=== PATIENT | female | born 1965 | race Caucasian/White ===

== ENCOUNTER 2021-03-30 11:48 | Inpatient (IN) ==
[2021-03-30] MEDS ORDERED: ONDANSETRON INJ 2 MG/ML 2 ML VIAL IV STA (12:27)
[2021-03-30] MEDS ORDERED: MoRPHine SULFATE 4 MG/ML 1 ML CARP\\VIAL IV PRN (12:27)
[2021-03-30] MEDS ORDERED: KETOROLAC TROMETHAMINE 15 MG/ML VIAL IV STA (12:27)
[2021-03-30] MEDS ORDERED: SODIUM CHLORIDE 0.9% 1000ML 1,000 ML IV STA (12:27)
--- NOTE | 2021-03-30 12:31 | Emergency Department Note ---
Impression & Plan Epigastric abdominal pain, Precordial chest pain ED Provider Note NAME: KHARI MOLINA AGE: 56 SEX: F : 1965 ARRIVES VIA: Walk-In INFORMANT: [Patient] ED PROVIDER(S): [Keven Arvizu MD] CHIEF COMPLAINT: Chest pain HISTORY OF PRESENT ILLNESS: The patient is a 56-year-old female who has had 2 days of symptoms. She has lower chest pain/epigastric abdominal pain that radiates to the back. It is constant and a 10/10. The patient states that she was diagnosed with pancreatitis in the past and today's presentation feels similar. She was recently in the hospital for pancreatitis. The patient did try a liquid diet starting yesterday, it has not helped. There has been no shortness of breath, no cough or cold or fever. She has not had urinary complaints. 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 She still has her gallbladder. REVIEW OF SYSTEMS: See HPI for pertinent positives and negatives. A total of ten systems were reviewed and were otherwise negative. PMHx/PSHx: See Below SOCIAL HISTORY: See Below. PHYSICAL EXAM: GENERAL: Patient is in no acute distress. HEENT: No acute trauma, normocephalic atraumatic, mucous membranes moist, no nasal congestion, no scleral icterus. NECK: No stridor, no adenopathy, no meningismus, trachea is midline. LUNGS: Clear to auscultation bilaterally, no wheeze, no rhonchi, breath sounds equal. HEART: Without murmurs gallops or rubs, regular rate and rhythm. ABDOMEN: Soft, moderately tender in the epigastrium, bowel sounds positive, no hernias, no peritonitis. EXTREMITIES: No cyanosis or edema, full range of motion of all the joints without pain or difficulty, no signs for acute trauma. NEUROLOGIC: Oriented x 3, no acute motor or sensory deficits, no focal weakness. SKIN: No rash, no jaundice, no diaphoresis. DIFFERENTIAL DIAGNOSIS: Appendicitis, ovarian cyst, ovarian torsion, diverticulitis, UTI, obstruction, mesenteric ischemia, aortic pathology, inflammatory bowel disease, renal colic, PUD, pancreatitis, biliary pathology, hernia, volvulus, constipation, as well as other pathologies. EMERGENCY DEPARTMENT COURSE/PROCEDURES: ECG: Indication was chest pain. The ECG shows a sinus rhythm with a PVC. The rate is 71. There is no ST elevation, no PACs. The QTc is 419. Continuous Cardiac Monitoring: An order was placed for continuous cardiac monitoring. The monitor shows a rate of 87 with normal sinus rhythm. MEDICAL DECISION MAKING: There is no leukocytosis or concerning anemia. No significant electrolyte abnormality or kidney failure. No concerning liver enzyme elevation. No evidence for pancreatitis. Covid testing returned negative. Chest film does not show pneumonia or pneumothorax. ECG shows a sinus rhythm, no acute ischemia. Cardiac enzyme testing x1 is not consistent with acute cardiac injury. Abdominal and pelvis CT does not show any evidence for acute surgical process. No bowel obstruction. No pancreatitis. No free air. The patient was given IV saline, IV Zofran, IV morphine. She was given IV Toradol. She does seem more comfortable. The patient presents with symptoms consistent with pancreatitis. She has a history of the same. She is not stable for discharge as she is still quite uncomfortable. I spoke with case management, I talked with the patient, the on-call hospitalist has been counseled. I do suspect pancreatitis as the cause for her presentation. Past Med/Surg History Medical History Anxiety Depression Surgical History (Updated 03/30/21 @ 16:54 by Porsche Gutierrez PA-C) History of arthroscopic knee surgery History of hernia repair History of shoulder surgery History of tonsillectomy and adenoidectomy History of tubal ligation Family History (Updated 03/30/21 @ 16:54 by Porsche Gutierrez PA-C) Grandmother Liver cancer Father Atrial fibrillation Social History Smoking Status: Former smoker Hx Alcohol Use: Yes Hx Substance Use: Yes Non-Prescribed Medications: Methamphetamines Preferred Language: Kazakh marital status: / Current Living Situation: Alone Feels Safe at Home: Yes Allergies Allergies Allergy/AdvReac Type Severity Reaction Status Date / Time oxycodone Allergy Unknown SWELLING Verified 03/30/21 13:59 Home Meds Home Medications Medication Instructions Recorded Confirmed buspirone 15 mg tablet 30 mg PO BID 03/12/21 03/30/21 cyclobenzaprine 10 mg tablet 10 mg PO BID PRN 03/12/21 03/30/21 gabapentin 300 mg capsule 300 mg PO TID PRN 03/12/21 03/30/21 hydroxyzine HCl 25 mg tablet 25 mg PO TID PRN 03/12/21 03/30/21 ibuprofen 200 mg tablet 400 mg PO Q6H PRN 03/12/21 03/30/21 lorazepam 0.5 mg tablet 0.5 mg PO DAILY PRN 03/12/21 03/30/21 trazodone 50 mg tablet 25 mg PO DAILY 03/12/21 03/30/21 venlafaxine 150 mg 150 mg PO DAILY 03/12/21 03/30/21 capsule,extended release 24 hr venlafaxine 75 mg capsule,extended 75 mg PO DAILY 03/12/21 03/30/21 release 24 hr Results & Data (ED) Vital Signs Vital Signs - 24 hr 03/30/21 11:53 03/30/21 12:27 03/30/21 14:00 Temperature 36.1 C L Temperature Source Temporal Artery Scan Pulse Rate 87 Pulse Rate [Finger] 88 Pulse Rhythm [Finger] Pulse Strength [Finger] Respiratory Rate 18 18 Respiratory Effort / Characteristics Non-Labored Non-Labored Spontaneous Respiratory Depth Normal Normal Respiratory Pattern Regular Regular Blood Pressure 143/89 H Blood Pressure [Right Arm] 137/79 Blood Pressure Mean 107 Blood Pressure Mean [Right Arm] 98 Blood Pressure Position [Right Arm] Lying Pulse Oximetry 95 98 Oxygen Delivery Method Room Air Room Air Room Air Sepsis Recent Fever Within 48 Hours No Sepsis New/Unexplained Change in Mental Status No Sepsis Action Taken by Nursing No Action Required 03/30/21 16:00 Temperature Temperature Source Pulse Rate Pulse Rate [Finger] 63 Pulse Rhythm [Finger] Regular Pulse Strength [Finger] Normal Respiratory Rate 18 Respiratory Effort / Characteristics Non-Labored Spontaneous Respiratory Depth Normal Respiratory Pattern Regular Blood Pressure Blood Pressure [Right Arm] 136/74 Blood Pressure Mean Blood Pressure Mean [Right Arm] 94 Blood Pressure Position [Right Arm] Lying Pulse Oximetry 96 Oxygen Delivery Method Room Air Sepsis Recent Fever Within 48 Hours Sepsis New/Unexplained Change in Mental Status Sepsis Action Taken by Skilled Nursing Medications Current Medication List: was personally reviewed by me Laboratory Data Attestation: I reviewed the patient's lab results. Result diagrams: 03/30/21 12:15 03/30/21 12:15 Lab Results 03/30/21 03/30/21 03/30/21 Range/Units 12:15 12:15 12:52 WBC 4.39 L (4.8-10.8) K/uL RBC 5.03 (4.2-5.4) M/uL Hgb 15.4 (12.0-16.0) g/dL Hct 44.7 (37-47) % MCV 88.9 (80-100) fL MCH 30.6 (25-34) pg MCHC 34.5 (32-36) g/dL RDW Std Deviation 41.2 (36.4-46.3) fL RDW Coeff of Jesse 12.9 (11.5-14.5) % Plt Count 172 (130-400) K/uL MPV 10.4 (7.4-10.4) fL Immature Gran % (Auto) 0.0 % Neut % (Auto) 46.5 % Lymph % (Auto) 42.4 % Franklin % (Auto) 7.3 % Eos % (Auto) 3.6 % Baso % (Auto) 0.2 % Neut # (Auto) 2.04 (1.4-6.5) K/uL Lymph # (Auto) 1.86 (1.2-3.4) K/uL Franklin # (Auto) 0.32 (0.11-0.59) K/uL Eos # (Auto) 0.16 (0-0.5) K/uL Baso # (Auto) 0.01 (0-0.2) K/uL Immature Gran # (Auto) 0.00 (0.00-0.02) K/uL Sodium 140 (136-145) mmol/L Potassium 4.0 (3.5-5.1) mmol/L Chloride 107 (98-107) mmol/L Carbon Dioxide 25 (21-32) mmol/L Anion Gap 8.0 (3-11) BUN 18 (7-18) mg/dl Creatinine 1.04 (0.6-1.2) mg/dl Est Cr Clr Drug Dosing 77.5 ml/min Est GFR ( Amer) 69.1 ml/min Est GFR (Non-Af Amer) 59.6 ml/min BUN/Creatinine Ratio 17.6 (10-20) Glucose 103 H (70-99) mg/dl Calcium 9.6 (8.5-10.1) mg/dl Total Bilirubin 0.5 (0.2-1) mg/dl AST 14 L (15-37) U/L ALT 23 (12-78) U/L Alkaline Phosphatase 95 (45-117) U/L Troponin I < 0.015 (0-0.045) ng/ml Total Protein 7.5 (6.4-8.2) gm/dl Albumin 4.0 (3.4-5.0) gm/dl Globulin 3.5 (2.5-4.0) gm/dl Albumin/Globulin Ratio 1.2 (0.9-2) Lipase 158 (73-393) U/L COVID-19 Eval Order Covid19 at [facility] SARS-CoV-2 (PCR) (Negative) 03/30/21 Range/Units 12:52 WBC (4.8-10.8) K/uL RBC (4.2-5.4) M/uL Hgb (12.0-16.0) g/dL Hct (37-47) % MCV (80-100) fL MCH (25-34) pg MCHC (32-36) g/dL RDW Std Deviation (36.4-46.3) fL RDW Coeff of Jesse (11.5-14.5) % Plt Count (130-400) K/uL MPV (7.4-10.4) fL Immature Gran % (Auto) % Neut % (Auto) % Lymph % (Auto) % Franklin % (Auto) % Eos % (Auto) % Baso % (Auto) % Neut # (Auto) (1.4-6.5) K/uL Lymph # (Auto) (1.2-3.4) K/uL Franklin # (Auto) (0.11-0.59) K/uL Eos # (Auto) (0-0.5) K/uL Baso # (Auto) (0-0.2) K/uL Immature Gran # (Auto) (0.00-0.02) K/uL Sodium (136-145) mmol/L Potassium (3.5-5.1) mmol/L Chloride (98-107) mmol/L Carbon Dioxide (21-32) mmol/L Anion Gap (3-11) BUN (7-18) mg/dl Creatinine (0.6-1.2) mg/dl Est Cr Clr Drug Dosing ml/min Est GFR ( Amer) ml/min Est GFR (Non-Af Amer) ml/min BUN/Creatinine Ratio (10-20) Glucose (70-99) mg/dl Calcium (8.5-10.1) mg/dl Total Bilirubin (0.2-1) mg/dl AST (15-37) U/L ALT (12-78) U/L Alkaline Phosphatase (45-117) U/L Troponin I (0-0.045) ng/ml Total Protein (6.4-8.2) gm/dl Albumin (3.4-5.0) gm/dl Globulin (2.5-4.0) gm/dl Albumin/Globulin Ratio (0.9-2) Lipase (73-393) U/L COVID-19 Eval Order SARS-CoV-2 (PCR) NEGATIVE (Negative) Administered Medications Lactated Ringer's (Lr) 1,000 mls @ 150 mls/hr IV .Q6H40M MELISSA Stop: 04/29/21 16:44 Last Admin: 03/30/21 18:11 Dose: 150 mls/hr Documented by: [id number] Acetaminophen (Ofirmev) 1,000 mg in 100 mls @ 400 mls/hr IV Q8H MELISSA Stop: 04/02/21 18:14 Last Admin: 03/30/21 18:55 Dose: 400 mls/hr Documented by: [id number] Morphine Sulfate (Morphine Sulfate 4 Mg/Ml 1 Ml Carp\Vial) 4 mg IV Q4H PRN PRN Reason: severe pain Stop: 04/13/21 17:47 Last Admin: 03/30/21 18:54 Dose: 4 mg Documented by: [id number] Discontinued Medications Sodium Chloride (Nss 1000ml) 1,000 mls @ 999 mls/hr IV .Q1H1M STA Stop: 03/30/21 13:27 Last Infusion: 03/30/21 13:50 Dose: 0 mls/hr Documented by: [id number] Admin: 03/30/21 12:46 Dose: 999 mls/hr Documented by: [id number] Famotidine (Pepcid 20mg Iv Push) 20 mg in 5 mls @ 2.5 mls/min IV NOW STA Stop: 03/30/21 17:14 Last Admin: 03/30/21 17:56 Dose: 2.5 mls/min Documented by: [id number] Ioversol (Optiray 320 100ml) 94 ml IV ONCE ONE Stop: 03/30/21 14:43 Last Admin: 03/30/21 14:42 Dose: 94 ml Documented by: [id number] Ketorolac Tromethamine (Ketorolac Tromethamine 15 Mg/Ml Vial) 15 mg IV NOW STA Stop: 03/30/21 12:28 Last Admin: 03/30/21 12:48 Dose: 15 mg Documented by: [id number] Morphine Sulfate (Morphine Sulfate 4 Mg/Ml 1 Ml Carp\Vial) 6 mg IV Q15M PRN PRN Reason: Pain Stop: 04/13/21 12:26 Last Admin: 03/30/21 12:47 Dose: 6 mg Documented by: [id number] Morphine Sulfate (Morphine Sulfate 2 Mg/Ml Carp) Confirm Administered Dose 2 mg .ROUTE .STK-MED ONE Stop: 03/30/21 12:36 Last Admin: 03/30/21 12:48 Dose: Not Given Documented by: [id number] Ondansetron HCl (Ondansetron Inj 2 Mg/Ml 2 Ml Vial) 4 mg IV NOW STA Stop: 03/30/21 12:28 Last Admin: 03/30/21 12:47 Dose: 4 mg Documented by: [id number] Imaging Data Radiologist's Impression: Abdomen/Pelvis CT 03/30/21 12:[address] WITH IV CONTRAST CT DOSE: 594.40 mGy.cm HISTORY: Epigastric pain. TECHNIQUE: Multiaxial CT images of the abdomen and pelvis were performed foll owing the use of intravenous contrast. A dose lowering technique was utilized adhering to the principles of ALARA. COMPARISON STUDY: Abdomen and pelvis CT 03/12/2021. FINDINGS: There is a 4 mm nodule within the right lower lobe on image 28. There are mild dependent changes seen at the lung bases. No fractures within the visualized osseous structures. Suggestion of prior umbilical hernia repair. The liver, gallbladder, pancreas, spleen, adrenal glands, and kidneys are unremarkable. No hydronephrosis. No retroperitoneal lymphadenopathy. Normal caliber abdominal aorta. The bladder, uterus, and bilateral adnexa are within normal limits. No pelvic free fluid. No bowel wall thickening or obstruction. Moderate well-formed stool within the colon. Normal appendix. Old, healed right posterior rib fractures. IMPRESSION: 1. No bowel wall thickening or obstruction. 2. No hydronephrosis. 3. Moderate well-formed stool within the colon. 4. A 4 mm indeterminate pulmonary nodule within the right lower lobe. ACT 112: Negative or not required by law. Electronically signed by: David South M.D. 03/30/2021 3:36 PM Chest X-Ray 03/30/21 12:27 XR chest 1V portable INDICATION: MN ^abd pain . TECHNIQUE: Single frontal radiograph of the chest was obtained. Comparison: Comparison is made to chest one view 03/11/2021 FINDINGS: No lines and tubes are seen. The cardiomediastinal silhouette is normal. The lungs are clear. No evidence of pleural effusion or pneumothorax. IMPRESSION: No acute chest disease. ACT 112: Negative or not required by law. Electronically signed by: Antony Velázquez M.D. 03/30/2021 2:25 PM Discharge Plan Visit Data Chief Complaint: Chest Pain Stated Complaint: CHEST PAINS ED Provider: Keven Arvizu Discharge Problem: Epigastric abdominal pain, Precordial chest pain Patient Disposition: Admitted As Inpatient Condition: Fair Discharge Instructions Interventions: ED Discharge Assessment Last Done: 03/30/21 17:32
[2021-03-30] MEDS ORDERED: MoRPHine SULFATE 2 MG/ML CARP ONE (12:35)
[2021-03-30 12:47] LABS: Basophils # (auto) 0.01 K/uL (0-0.2); Basophils % (auto) 0.2 %; Eosinophils # (auto) 0.16 K/uL (0-0.5); Eosinophils % (auto) 3.6 %; Hematocrit (blood only) 44.7 % (37-47); Hemoglobin 15.4 g/dL (12.0-16.0); Lymphocytes # (auto) 1.86 K/uL (1.2-3.4); Lymphocytes % (auto) 42.4 %; Mean Corpuscular Hemoglobin 30.6 pg (25-34); Mean Corpuscular Hgb Conc 34.5 g/dL (32-36); Mean Corpuscular Volume 88.9 fL (80-100); Mean Platelet Volume 10.4 fL (7.4-10.4); Monocytes # (auto) 0.32 K/uL (0.11-0.59); Monocytes % (auto) 7.3 %; Neutrophils # (auto) 2.04 K/uL (1.4-6.5); Neutrophils % (auto) 46.5 %; Platelet Count 172 K/uL (130-400); RDW Coefficient of Variation 12.9 % (11.5-14.5); RDW Standard Deviation 41.2 fL (36.4-46.3); Red Blood Count 5.03 M/uL (4.2-5.4); White Blood Count 4.39 K/uL (4.8-10.8)
[2021-03-30 13:02] LABS: Alanine Aminotransferase 23 U/L (12-78); Aspartate Aminotransferase 14 U/L (15-37); BUN Creatinine Ratio 17.6 (10-20); Blood Urea Nitrogen 18 mg/dl (7-18); Calcium 9.6 mg/dl (8.5-10.1); Carbon Dioxide 25 mmol/L (21-32); Chloride 107 mmol/L (98-107); Creatinine Clr Calc Pharmacy 77.5 ml/min; Est GFR (African American) 69.1 ml/min; Est GFR (Non-African American) 59.6 ml/min; Glucose 103 mg/dl (70-99); Lipase 158 U/L (73-393); Sodium 140 mmol/L (136-145)
[2021-03-30 13:06] LABS: Albumin Globulin Ratio 1.2 (0.9-2); Alkaline Phosphatase 95 U/L (45-117); Bilirubin,Total 0.5 mg/dl (0.2-1); Globulin 3.5 gm/dl (2.5-4.0); Total Protein 7.5 gm/dl (6.4-8.2); Troponin I < 0.015 ng/ml (0-0.045)
--- NOTE | 2021-03-30 14:27 | XRay Report ---
XR chest 1V portable INDICATION: MN ^abd pain . TECHNIQUE: Single frontal radiograph of the chest was obtained. Comparison: Comparison is made to chest one view 03/11/2021 FINDINGS: No lines and tubes are seen. The cardiomediastinal silhouette is normal. The lungs are clear. No evid ence of pleural effusion or pneumothorax. IMPRESSION: No acute chest disease. ACT 112: Negative or not required by law. Electronically signed by: Antony Velázquez M.D. 03/30/2021 2:25 PM
[2021-03-30] MEDS ORDERED: OPTIRAY 320 100ml IV ONE (14:42)
--- NOTE | 2021-03-30 15:37 | CT Scan Report ---
ABDOMEN AND PELVIS CT WITH IV CONTRAST CT DOSE: 594.40 mGy.cm HISTORY: Epigastric pain. TECHNIQUE: Multiaxial CT images of the abdomen and pelvis were performed following the use of intrave nous contrast. A dose lowering technique was utilized adhering to the principles of ALARA. COMPARISON STUDY: Abdomen and pelvis CT 03/12/2021. FINDINGS: There is a 4 mm nodule within the right lower lobe on image 28. There are mild dependent ch anges seen at the lung bases. No fractures within the visualized osseous structures. Suggestion of pr ior umbilical hernia repair. The liver, gallbladder, pancreas, spleen, adrenal glands, and kidneys ar e unremarkable. No hydronephrosis. No retroperitoneal lymphadenopathy. Normal caliber abdominal aorta . The bladder, uterus, and bilateral adnexa are within normal limits. No pelvic free fluid. No bowel wall thickening or obstruction. Moderate well-formed stool within the colon. Normal appendix. Old, he aled right posterior rib fractures. IMPRESSION: 1. No bowel wall thickening or obstruction. 2. No hydronephrosis. 3. Moderate well-formed stool within the colon. 4. A 4 mm indeterminate pulmonary nodule within the right lower lobe. ACT 112: Negative or not required by law. Electronically signed by: David South M.D. 03/30/2021 3:36 PM
--- NOTE | 2021-03-30 16:45 | History & Physical Report ---
Date of Service March 30, 2021 Assessment & Plan (1) Chest pain: (2) Epigastric abdominal pain: (3) Nausea: (4) Pancreatitis, acute: Plan: This a 56-year-old female who has significant past medical history of depression with anxiety, history of alcohol use, history of methamphetamine abuse, CKD stage IIIa who presents ED secondary to epigastric abdominal pain x1.5 days. Epigastric abd pain x 1.5 days with radiation to sternal chest wall and around LUQ to back. Sx started a few hours after eating pizza. Prior hx of pancreatitis x 2 in 2013, per pt second time required stenting. No significant hx of ETOH or NSAID use. Similar sx occurred 2 weeks ago, seen in ED, Lipase 500s, treated conservatively and sx resolved. ? if 2/2 to subclinical pancreatitis, biliary colic, gastritis, esophageal spasm, less likely cardiac in nature admit to med tele consult GI remain NPO except sips/chips IV LR @150cc/hr IV APAP Q8hr scheduled PRN IV morphine for severe pain cycle trops for completeness; however pain reproducible in epigastrum EKG unremarkable, repeat in a.m. IV zofran IV Pepcid daily monitor cbc, cmp and repeat Lipase in a.m. Depression w/ anxiety continue effexor, buspar and trazodone prn lorazepam and hydroxyzine CKD-3a bun/cr stable baseline cr 1.0-1.1 in [facility] Dispo: med tele PCP: James FULL CODE Pt was seen and examined in collaboration with Dr. Black, please see addendum Please contact via [place] text with questions or [facility] History of Present Illness Chief Complaint: Abdominal pain x 1.5 days. Primary Care Provider: Ellis Ramirez MD This a 56-year-old female who has significant past medical history of depression with anxiety, history of alcohol use, history of methamphetamine abuse, CKD stage IIIa who presents ED secondary to epigastric abdominal pain x1.5 days. Her boyfriend is at bedside. She states pain started 2 evenings ago approximately 2 hours after eating pizza. Pain is located in epigastrium and radiates to sternal region as well as around the left lower quadrant into her back. She describes pain as stabbing, constant, does not wax or wane, made worse with inspiration, but nothing else improves pain. She has tried [id number] ibuprofen and prescribed Zofran without relief. She has had similar symptoms in the past when diagnosed with pancreatitis. At that time her lipase was mildly elevated in the 500s. She also admits to having pancreatitis back in approximately 2013x2. The second time required a stent placed in questionably the pancreatic duct. This was done in [place] and she has not followed up with gastroenterology in this area. She also elicits headache and nausea but no vomiting. She denies fever, chills, sweats, lightheadedness, dizziness, shortness breath, cough, URI symptoms, hemoptysis, emesis, hematemesis, diarrhea, melena or hematochezia. Over the past 24 hours she has stopped to mostly a liquid diet. She has been unable to eat. She is able to tolerating liquids. She denies any history of abdominal surgeries. Her last bowel movement was 2 days ago. In ED anemic stable CMP and CBC were unremarkable at her lipase was unremarkable. CT abdomen pelvis revealed no bowel wall thickening or obstruction, no hydronephrosis, a 4 mm indeterminate pulmonary nodule within the right lower lobe. Symptoms improving with IV narcotics. She denies significant NSAID Use. Last ETOH use was 2 weeks ago. She does not consume ETOH on a regular basis. She states back in 2013 they initially thought ETOH related until she required a pancreatic stent. Of significance pt was seen in ED on 03/13/21 with similar sx. At that time lipase mildly elevated 515. She was seen in f/u with PCP and repeat lipase on 03/21 was 148. Allergies Allergy/AdvReac Type Severity Reaction Status Date / Time oxycodone Allergy Unknown SWELLING Verified 03/30/21 13:59 Home Medications Medication Instructions Recorded Confirmed Type buspirone 15 mg tablet 30 mg PO BID 03/12/21 03/30/21 History cyclobenzaprine 10 mg tablet 10 mg PO BID PRN 03/12/21 03/30/21 History gabapentin 300 mg capsule 300 mg PO TID PRN 03/12/21 03/30/21 History hydroxyzine HCl 25 mg tablet 25 mg PO TID PRN 03/12/21 03/30/21 History ibuprofen 200 mg tablet 400 mg PO Q6H PRN 03/12/21 03/30/21 History lorazepam 0.5 mg tablet 0.5 mg PO DAILY PRN 03/12/21 03/30/21 History trazodone 50 mg tablet 25 mg PO DAILY 03/12/21 03/30/21 History venlafaxine 150 mg 150 mg PO DAILY 03/12/21 03/30/21 History capsule,extended release 24 hr venlafaxine 75 mg capsule,extended 75 mg PO DAILY 03/12/21 03/30/21 History release 24 hr Past Med/Surg History Medical History Anxiety Depression Surgical History (Updated 03/30/21 @ 16:54 by Porsche Gutierrez PA-C) History of arthroscopic knee surgery History of hernia repair History of shoulder surgery History of tonsillectomy and adenoidectomy History of tubal ligation Family History (Updated 03/30/21 @ 16:54 by Porsche Gutierrez PA-C) Grandmother Liver cancer Father Atrial fibrillation Social History Smoking Status: Former smoker Second Hand Exposure: No; Do You Dip or Chew Tobacco: No; Tobacco Cessation Education Requested by Patient: No Hx Alcohol Use: No Hx Substance Use: No Preferred Language: [place] Communication Ability: Effective Welfare Eligibility Interviewer Required: No Beliefs That Will Affect Care: None marital status: / Current Living Situation: Family Other Information That Helps Us Care for You: No Feels Safe at Home: Yes Safety Concerns: Feels Safe At This Time Assistive Devices: Glasses Review of Systems Review of Systems: All systems reviewed & are unremarkable except as noted in HPI & below Physical Exam Physical Exam: Constitutional: WD/WN, appears ill, In pain, vitals as above, NAD, sitting up in bed, pleasant, conversing easily Head: Normocephalic, Atraumatic Eyes: PERRL, conjunctivae normal, anicteric sclerae ENMT: external ear and nose normal, oropharynx normal Neck: trachea midline, no thyromegaly normal visual inspection Respiratory: normal respiratory effort, lungs clear to auscultation, no wheeze, rales, rhonchi. Normal insp/exp effort, no accessory muscle use Cardiovascular: RRR, no murmur, no edema Vessels: no JVD or carotid bruit Chest: normal inspection of chest Abdomen: + pain to palpation in epigastrum and LUQ, no rebound, guarding or rigidity, normal bowel sounds, soft, no hepatosplenomegaly Musculoskeletal: no cyanosis or clubbing, extremities motor strength 5/5 Skin: no rashes, warm and dry normal turgor Neurologic: PERRL, EOMI, accommodation nl, no face palsy, no dysarthria CN's II-XI intact bilaterally and moves all extremities Psychiatric: A+Ox3, euthymic affect Lymphatic: no cervical or axillary lymphadenopathy : deferred Results & Data Results & Data ([facility]) Vital Signs (Past 12 Hours) Vital Signs Temp Pulse Pulse Resp BP BP Pulse Ox 03/30/21 16:00 63 18 136/74 96 03/30/21 14:00 88 18 137/79 98 03/30/21 11:53 36.1 C L 87 18 143/89 H 95 Diagnostic Findings Abdomen/Pelvis CT 03/30/21 12:[address] WITH IV CONTRAST CT DOSE: 594.40 mGy.cm HISTORY: Epigastric pain. TECHNIQUE: Multiaxial CT images of the abdomen and pelvis were performed following the use of intravenous contrast. A dose lowering technique was utilized adhering to the principles of ALARA. COMPARISON STUDY: Abdomen and pelvis CT 03/12/2021. FINDINGS: There is a 4 mm nodule within the right lower lobe on image 28. There are mild dependent changes seen at the lung bases. No fractures within the visualized osseous structures. Suggestion of prior umbilical hernia repair. The liver, gallbladder, pancreas, spleen, adrenal glands, and kidneys are unremarkable. No hydronephrosis. No retroperitoneal lymphadenopathy. Normal caliber abdominal aorta. The bladder, uterus, and bilateral adnexa are within normal limits. No pelvic free fluid. No bowel wall thickening or obstruction. Moderate well-formed stool within the colon. Normal appendix. Old, healed right posterior rib fractures. IMPRESSION: 1. No bowel wall thickening or obstruction. 2. No hydronephrosis. 3. Moderate well-formed stool within the colon. 4. A 4 mm indeterminate pulmonary nodule within the right lower lobe. ACT 112: Negative or not required by law. Electronically signed by: David South M.D. 03/30/2021 3:36 PM Chest X-Ray 03/30/21 12:27 XR chest 1V portable INDICATION: MN ^abd pain . TECHNIQUE: Single frontal radiograph of the chest was obtained. Comparison: Comparison is made to chest one view 03/11/2021 FINDINGS: No lines and tubes are seen. The cardiomediastinal silhouette is normal. The lungs are clear. No evidence of pleural effusion or pneumothorax. IMPRESSION: No acute chest disease. ACT 112: Negative or not required by law. Electronically signed by: Antony Velázquez M.D. 03/30/2021 2:25 PM Medications Administered Medication List Morphine Sulfate (Morphine Sulfate 4 Mg/Ml 1 Ml Carp\Vial) 6 mg IV Q15M PRN PRN Reason: Pain Stop: 04/13/21 12:26 Last Admin: 03/30/21 12:47 Dose: 6 mg Documented by: [id number] Discontinued Medications Sodium Chloride (Nss 1000ml) 1,000 mls @ 999 mls/hr IV .Q1H1M STA Stop: 03/30/21 13:27 Last Infusion: 03/30/21 13:50 Dose: 0 mls/hr Documented by: [id number] Admin: 03/30/21 12:46 Dose: 999 mls/hr Documented by: [id number] Ioversol (Optiray 320 100ml) 94 ml IV ONCE ONE Stop: 03/30/21 14:43 Last Admin: 03/30/21 14:42 Dose: 94 ml Documented by: [id number] Ketorolac Tromethamine (Ketorolac Tromethamine 15 Mg/Ml Vial) 15 mg IV NOW STA Stop: 03/30/21 12:28 Last Admin: 03/30/21 12:48 Dose: 15 mg Documented by: [id number] Morphine Sulfate (Morphine Sulfate 2 Mg/Ml Carp) Confirm Administered Dose 2 mg .ROUTE .STK-MED ONE Stop: 03/30/21 12:36 Last Admin: 03/30/21 12:48 Dose: Not Given Documented by: [id number] Ondansetron HCl (Ondansetron Inj 2 Mg/Ml 2 Ml Vial) 4 mg IV NOW STA Stop: 03/30/21 12:28 Last Admin: 03/30/21 12:47 Dose: 4 mg Documented by: [id number] ECG Rate (beats per minute): 71 Rhythm: normal sinus Findings: + PVC COVID-19 Results Results COVID-19 Adm Lab Results: RBC 5.03 M/uL (4.2-5.4) 03/30/21 WBC 4.39 K/uL (4.8-10.8) L 03/30/21 Hgb 15.4 g/dL (12.0-16.0) 03/30/21 Hct 44.7 % (37-47) 03/30/21 Plt Count 172 K/uL (130-400) 03/30/21 Neutrophils (%) (Auto) 46.5 % 03/30/21 Lymphocytes (%) (Auto) 42.4 % 03/30/21 Monocytes # (Auto) 0.32 K/uL (0.11-0.59) 03/30/21 Eosinophils # (Auto) 0.16 K/uL (0-0.5) 03/30/21 Immature Granulocyte % (Auto) 0.0 % 03/30/21 Neutrophils # (Auto) 2.04 K/uL (1.4-6.5) 03/30/21 Lymphocytes # (Auto) 1.86 K/uL (1.2-3.4) 03/30/21 Monocytes # (Auto) 0.32 K/uL (0.11-0.59) 03/30/21 Eosinophils # (Auto) 0.16 K/uL (0-0.5) 03/30/21 Basophils # (Auto) 0.01 K/uL (0-0.2) 03/30/21 Immature Granulocyte # (Auto) 0.00 K/uL (0.00-0.02) 03/30/21 Na 140 mmol/L (136-145) 03/30/21 K 4.0 mmol/L (3.5-5.1) 03/30/21 Cl 107 mmol/L (98-107) 03/30/21 CO2 25 mmol/L (21-32) 03/30/21 Anion Gap 8.0 (3-11) 03/30/21 BUN 18 mg/dl (7-18) 03/30/21 Creatinine 1.04 mg/dl (0.6-1.2) 03/30/21 BUN/Creatinine Ratio 17.6 (10-20) 03/30/21 Glucose Level 103 mg/dl (70-99) H 03/30/21 Ca 9.6 mg/dl (8.5-10.1) 03/30/21 Total Bilirubin 0.5 mg/dl (0.2-1) 03/30/21 AST/SGOT 14 U/L (15-37) L 03/30/21 ALT/SGPT 23 U/L (12-78) 03/30/21 Alkaline Phosphatase 95 U/L (45-117) 03/30/21 Total Protein 7.5 gm/dl (6.4-8.2) 03/30/21 Albumin 4.0 gm/dl (3.4-5.0) 03/30/21 Globulin 3.5 gm/dl (2.5-4.0) 03/30/21 Albumin/Globulin Ratio 1.2 (0.9-2) 03/30/21 Troponin I < 0.015 ng/ml (0-0.045) 03/30/21 COVID-19 PCR NEGATIVE (Negative) 03/30/21 Chest X-Ray 03/30/21 Code Status & VTE Plan Code Status Full Code VTE Prophylaxis Plan VTE Prophylaxis will be ordered: Yes Supervising Physician Co-Signing Physician Notes I have seen and examined the patient and have discussed the case with the provider above. I agree with the assessment and plan as stated with the following exceptions. Clinically she is describing PO intolerance for the past two weeks. She has a h/o pancreatitis several years ago, describing an abnormal pancreatic duct with placement of a stent. She has a h/o alcoholism but reports abstinence. She is uncertain of the triggers which are causing her pain, denies associated SOB, diaphoresis. She denies chest pain and reports this as more epigastric pain with radiation to her back. CT scan reveals no clear structural cause for her pain. Lipase is normal. However, she has clear epigastric >RUQ TTP that reproduces her pain. Physical exam is otherwise same as above. She has significant nausea. Suspect acute pancreatitis as the cause of her pain. Agree with GI consult, IVF, and bowel rest with monitoring for clinical improvement and pain mediation as needed. DO Wayne
[2021-03-30] MEDS ORDERED: FAMOTIDINE 20MG IV PUSH 20 MG/5 ML SYR IV STA (17:13)
[2021-03-30] MEDS ORDERED: hydrOXYzine HCl 25 MG TAB PO PRN (17:48)
[2021-03-30] MEDS ORDERED: MAGNESIUM HYDROXIDE SUSP 30 ML UDC PO PRN (17:48)
[2021-03-30] MEDS ORDERED: ALUMINUM/MAGNESIUM SUSP 30 ML UDC PO PRN (17:48)
[2021-03-30] MEDS ORDERED: POLYETHYLENE (MIRALAX) 17 GM PACK PO PRN (17:48)
[2021-03-30] MEDS ORDERED: LORazepam 0.5 MG TAB PO PRN (17:48)
[2021-03-30] MEDS ORDERED: ACETAMINOPHEN 325 MG TAB PO PRN (17:48)
[2021-03-30] MEDS: LACTATED RINGER'S 1,000 ML IV SCH (18:11)
[2021-03-30] MEDS: MoRPHine SULFATE 4 MG/ML 1 ML CARP\\VIAL IV PRN (18:54)
[2021-03-30] MEDS: ACETAMINOPHEN 1,000 MG/100 ML VIAL IV SCH (18:55)
[2021-03-30] MEDS ORDERED: busPIRone 15 MG TAB PO SCH (21:00)
[2021-03-30] MEDS: ENOXAPARIN INJ 40 MG/0.4 ML SYR SQ SCH (22:36)
[2021-03-31] MEDS: MoRPHine SULFATE 4 MG/ML 1 ML CARP\\VIAL IV PRN ×2 (00:33→05:28)
[2021-03-31] MEDS: LACTATED RINGER'S 1,000 ML IV SCH ×4 (01:21→22:12)
[2021-03-31] MEDS: ACETAMINOPHEN 1,000 MG/100 ML VIAL IV SCH ×3 (02:10→17:19)
[2021-03-31] MEDS: ONDANSETRON INJ 2 MG/ML 2 ML VIAL IV PRN ×3 (05:28→17:19)
--- NOTE | 2021-03-31 06:35 | Electrocardiogram Report ---
Test Reason : Blood Pressure : / mmHG Vent. Rate : 071 BPM Atrial Rate : 071 BPM P-R Int : 134 ms QRS Dur : 088 ms QT Int : 386 ms P-R-T Axes : 055 049 056 degrees QTc Int : 419 ms Sinus rhythm with occasional Premature ventricular complexes Possible Left atrial enlargement Borderline ECG When compared with ECG of 11-MAR-2021 21:48, Premature ventricular complexes are now Present Confirmed by Zackery Smith ([id number]) on 03/31/2021 6:34:45 AM Referred By: REFERRED SELF Confirmed By:Zackery Smith
[2021-03-31] MEDS ORDERED: KETOROLAC TROMETHAMINE 15 MG/ML VIAL IV ONE (06:43)
[2021-03-31] MEDS: busPIRone 15 MG TAB PO SCH ×2 (08:17→12:46)
[2021-03-31] MEDS: VENLAFAXINE HCL XR 75 MG CAPXR PO SCH (08:18)
[2021-03-31] MEDS: VENLAFAXINE HCL XR 150 MG CAPXR PO SCH (08:18)
[2021-03-31] MEDS: FAMOTIDINE 20 MG in SYRINGE 3 ML IV SCH (08:40)
[2021-03-31 08:41] LABS: Basophils # (auto) 0.01 K/uL (0-0.2); Basophils % (auto) 0.3 %; Eosinophils # (auto) 0.13 K/uL (0-0.5); Eosinophils % (auto) 3.9 %; Hematocrit (blood only) 39.9 % (37-47); Hemoglobin 13.3 g/dL (12.0-16.0); Lymphocytes # (auto) 1.66 K/uL (1.2-3.4); Lymphocytes % (auto) 49.4 %; Mean Corpuscular Hemoglobin 30.3 pg (25-34); Mean Corpuscular Hgb Conc 33.3 g/dL (32-36); Mean Corpuscular Volume 90.9 fL (80-100); Mean Platelet Volume 9.8 fL (7.4-10.4); Monocytes # (auto) 0.31 K/uL (0.11-0.59); Monocytes % (auto) 9.2 %; Neutrophils # (auto) 1.25 K/uL (1.4-6.5); Neutrophils % (auto) 37.2 %; Platelet Count 148 K/uL (130-400); RDW Coefficient of Variation 12.8 % (11.5-14.5); RDW Standard Deviation 42.6 fL (36.4-46.3); Red Blood Count 4.39 M/uL (4.2-5.4); White Blood Count 3.36 K/uL (4.8-10.8)
[2021-03-31] MEDS ORDERED: FAMOTIDINE 20MG/5ML IV PUSH IV SCH (09:00)
[2021-03-31] MEDS ORDERED: traZODone HCL 50 MG TAB PO SCH (09:00)
[2021-03-31 09:12] LABS: Albumin Level 3.3 gm/dl (3.4-5.0); Creatinine Clr Calc Pharmacy 82.9 ml/min; Est GFR (African American) 74.2 ml/min
[2021-03-31 09:14] LABS: Albumin Globulin Ratio 1.1 (0.9-2); Bilirubin,Total 0.4 mg/dl (0.2-1); Total Protein 6.3 gm/dl (6.4-8.2)
--- NOTE | 2021-03-31 10:05 | Gastrointestinal Consultation ---
Date of Consultation March 31, 2021 Assessment & Plan (1) Epigastric abdominal pain: 56 year old female with history of pancreatitis in 2015 requiring ERCP, admitted w/ CP and nausea, lipase/LFTs and CTAP unremarkable except constipation Treat conservatively Miralax 1 capful twice daily LR 150 mL/hr Antiemtics PRN Analgesia PRN OP EUS in 4-6 weeks Thank you for allowing us to participate in the care of this patient. Please call with any acute changes, questions or concerns. Please see addendum below with additional recommendation from my supervising physician. Supervising Physician Co-Signing Physician Notes I performed a history and physical examination of the patient today, including specifically on physical exam - soft abdomen. I have discussed the patient's management with the advanced practitioner. Please refer to the nurse practitioner's note for the documented findings and plan of care. Patient admitted with abdominal pain, has constipation on CT scan, she reports Hx of Pancreatitis in the past requiring ERCP, currently she does not have pancreatitis at all as her Lipase is normal and CT scan showed normal pancreas. Recommend: EGD/EUS as OP. Obtain ultrasound abdomen to r/o gallstones. Miralax for constipation. Diet as tolerated. Recall GI if needed. History of Present Illness Reason for Consultation: abd pain Requesting Physician: Wayne Attending Physician: Nallely Black, DO History of Present Illness 56 year old female with history of depression with anxiety, history of alcohol use, history of methamphetamine abuse, CKD-3 admitted w/ abd pain 2/3 days. Notes she has upper abd/chest pressure. Constant, steady. Stabbing. Does not radiate. Associated wth nausea but no vomiting. No change in bowel movements. Had similar symptoms in the ED weeks ago with lipase around 500. Resolved with bowel rest and fluids. Notes she had pancreatitis x 2 around 2014 and had ERCP at that time with biliary stent placement lipase normal lfts normal CTAP w/ constipation, liver, gallbladder, pancreas, spleen unremarkable. Allergies Allergy/AdvReac Type Severity Reaction Status Date / Time oxycodone Allergy Unknown SWELLING Verified 03/30/21 13:59 Home Medications Medication Instructions Recorded Confirmed Type buspirone 15 mg tablet 30 mg PO BID 03/12/21 03/30/21 History cyclobenzaprine 10 mg tablet 10 mg PO BID PRN 03/12/21 03/30/21 History gabapentin 300 mg capsule 300 mg PO TID PRN 03/12/21 03/30/21 History hydroxyzine HCl 25 mg tablet 25 mg PO TID PRN 03/12/21 03/30/21 History ibuprofen 200 mg tablet 400 mg PO Q6H PRN 03/12/21 03/30/21 History lorazepam 0.5 mg tablet 0.5 mg PO DAILY PRN 03/12/21 03/30/21 History trazodone 50 mg tablet 25 mg PO DAILY 03/12/21 03/30/21 History venlafaxine 150 mg 150 mg PO DAILY 03/12/21 03/30/21 History capsule,extended release 24 hr venlafaxine 75 mg capsule,extended 75 mg PO DAILY 03/12/21 03/30/21 History release 24 hr Patient History Medical History Anxiety Depression Surgical History (Updated 03/30/21 @ 16:54 by Porsche Gutierrez PA-C) History of arthroscopic knee surgery History of hernia repair History of shoulder surgery History of tonsillectomy and adenoidectomy History of tubal ligation Family History (Updated 03/30/21 @ 16:54 by Porsche Gutierrez PA-C) Grandmother Liver cancer Father Atrial fibrillation Social History Smoking Status: Former smoker Second Hand Exposure: No; Do You Dip or Chew Tobacco: No; Tobacco Cessation Education Requested by Patient: No Hx Alcohol Use: No Hx Substance Use: No Preferred Language: [place] Communication Ability: Effective 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 Beliefs That Will Affect Care: None marital status: / Current Living Situation: Family Other Information That Helps Us Care for You: No Feels Safe at Home: Yes Safety Concerns: Feels Safe At This Time Assistive Devices: None Review of Systems Review of Systems: All systems reviewed & are unremarkable except as noted in HPI & below Physical Exam Constitutional: WD/WN, vitals as above Respiratory: normal respiratory effort, lungs clear to auscultation Cardiovascular: RRR, no murmur, no edema Gastrointestinal (Abdomen): normal bowel sounds, soft, nontender, no hepatosplenomegaly Skin: no rashes, warm and dry Results & Data ([place]) Vital Signs (Past 12 Hours) Vital Signs Temp Pulse Pulse Resp BP Pulse Ox 03/31/21 08:08 36.4 C L 66 18 115/70 94 03/31/21 06:26 66 16 119/74 96 03/31/21 03:00 36.5 C 69 20 116/67 95 03/31/21 01:45 65 03/30/21 23:00 36.6 C 60 20 136/71 96 Laboratory Results 03/31/21 03/31/21 03/31/21 Range/Units 08:25 08:25 06:36 WBC 3.36 L (4.8-10.8) K/uL RBC 4.39 (4.2-5.4) M/uL Hgb 13.3 (12.0-16.0) g/dL Hct 39.9 (37-47) % MCV 90.9 (80-100) fL MCH 30.3 (25-34) pg MCHC 33.3 (32-36) g/dL RDW Std Deviation 42.6 (36.4-46.3) fL RDW Coeff of Jesse 12.8 (11.5-14.5) % Plt Count 148 (130-400) K/uL MPV 9.8 (7.4-10.4) fL Immature Gran % (Auto) 0.0 % Neut % (Auto) 37.2 % Lymph % (Auto) 49.4 % [place] % (Auto) 9.2 % Eos % (Auto) 3.9 % Baso % (Auto) 0.3 % Neut # (Auto) 1.25 L (1.4-6.5) K/uL Lymph # (Auto) 1.66 (1.2-3.4) K/uL [place] # (Auto) 0.31 (0.11-0.59) K/uL Eos # (Auto) 0.13 (0-0.5) K/uL Baso # (Auto) 0.01 (0-0.2) K/uL Immature Gran # (Auto) 0.00 (0.00-0.02) K/uL Sodium 138 (136-145) mmol/L Potassium 4.0 (3.5-5.1) mmol/L Chloride 106 (98-107) mmol/L Carbon Dioxide 29 (21-32) mmol/L Anion Gap 4.0 (3-11) BUN 20 H (7-18) mg/dl Creatinine 0.98 (0.6-1.2) mg/dl Est Cr Clr Drug Dosing 82.9 ml/min Est GFR ( Amer) 74.2 ml/min Est GFR (Non-Af Amer) 64.0 ml/min BUN/Creatinine Ratio 20.0 (10-20) Glucose 99 (70-99) mg/dl POC Glucose 105 H (70-99) mg/dl Calcium 9.0 (8.5-10.1) mg/dl Total Bilirubin 0.4 (0.2-1) mg/dl AST 12 L (15-37) U/L ALT 19 (12-78) U/L Alkaline Phosphatase 77 (45-117) U/L Troponin I (0-0.045) ng/ml Total Protein 6.3 L (6.4-8.2) gm/dl Albumin 3.3 L (3.4-5.0) gm/dl Globulin 3.0 (2.5-4.0) gm/dl Albumin/Globulin Ratio 1.1 (0.9-2) Lipase 145 (73-393) U/L COVID-19 Eval Order SARS-CoV-2 (PCR) (Negative) 03/31/21 03/30/21 03/30/21 Range/Units 00:29 18:31 12:52 WBC (4.8-10.8) K/uL RBC (4.2-5.4) M/uL Hgb (12.0-16.0) g/dL Hct (37-47) % MCV (80-100) fL MCH (25-34) pg MCHC (32-36) g/dL RDW Std Deviation (36.4-46.3) fL RDW Coeff of Jesse (11.5-14.5) % Plt Count (130-400) K/uL MPV (7.4-10.4) fL Immature Gran % (Auto) % Neut % (Auto) % Lymph % (Auto) % [place] % (Auto) % Eos % (Auto) % Baso % (Auto) % Neut # (Auto) (1.4-6.5) K/uL Lymph # (Auto) (1.2-3.4) K/uL [place] # (Auto) (0.11-0.59) K/uL Eos # (Auto) (0-0.5) K/uL Baso # (Auto) (0-0.2) K/uL Immature Gran # (Auto) (0.00-0.02) K/uL Sodium (136-145) mmol/L Potassium (3.5-5.1) mmol/L Chloride (98-107) mmol/L Carbon Dioxide (21-32) mmol/L Anion Gap (3-11) BUN (7-18) mg/dl Creatinine (0.6-1.2) mg/dl Est Cr Clr Drug Dosing ml/min Est GFR ( Amer) ml/min Est GFR (Non-Af Amer) ml/min BUN/Creatinine Ratio (10-20) Glucose (70-99) mg/dl POC Glucose (70-99) mg/dl Calcium (8.5-10.1) mg/dl Total Bilirubin (0.2-1) mg/dl AST (15-37) U/L ALT (12-78) U/L Alkaline Phosphatase (45-117) U/L Troponin I < 0.015 < 0.015 (0-0.045) ng/ml Total Protein (6.4-8.2) gm/dl Albumin (3.4-5.0) gm/dl Globulin (2.5-4.0) gm/dl Albumin/Globulin Ratio (0.9-2) Lipase (73-393) U/L COVID-19 Eval Order SARS-CoV-2 (PCR) NEGATIVE (Negative) 03/30/21 03/30/21 03/30/21 Range/Units 12:52 12:15 12:15 WBC 4.39 L (4.8-10.8) K/uL RBC 5.03 (4.2-5.4) M/uL Hgb 15.4 (12.0-16.0) g/dL Hct 44.7 (37-47) % MCV 88.9 (80-100) fL MCH 30.6 (25-34) pg MCHC 34.5 (32-36) g/dL RDW Std Deviation 41.2 (36.4-46.3) fL RDW Coeff of Jesse 12.9 (11.5-14.5) % Plt Count 172 (130-400) K/uL MPV 10.4 (7.4-10.4) fL Immature Gran % (Auto) 0.0 % Neut % (Auto) 46.5 % Lymph % (Auto) 42.4 % [place] % (Auto) 7.3 % Eos % (Auto) 3.6 % Baso % (Auto) 0.2 % Neut # (Auto) 2.04 (1.4-6.5) K/uL Lymph # (Auto) 1.86 (1.2-3.4) K/uL [place] # (Auto) 0.32 (0.11-0.59) K/uL Eos # (Auto) 0.16 (0-0.5) K/uL Baso # (Auto) 0.01 (0-0.2) K/uL Immature Gran # (Auto) 0.00 (0.00-0.02) K/uL Sodium 140 (136-145) mmol/L Potassium 4.0 (3.5-5.1) mmol/L Chloride 107 (98-107) mmol/L Carbon Dioxide 25 (21-32) mmol/L Anion Gap 8.0 (3-11) BUN 18 (7-18) mg/dl Creatinine 1.04 (0.6-1.2) mg/dl Est Cr Clr Drug Dosing 77.5 ml/min Est GFR ( Amer) 69.1 ml/min Est GFR (Non-Af Amer) 59.6 ml/min BUN/Creatinine Ratio 17.6 (10-20) Glucose 103 H (70-99) mg/dl POC Glucose (70-99) mg/dl Calcium 9.6 (8.5-10.1) mg/dl Total Bilirubin 0.5 (0.2-1) mg/dl AST 14 L (15-37) U/L ALT 23 (12-78) U/L Alkaline Phosphatase 95 (45-117) U/L Troponin I < 0.015 (0-0.045) ng/ml Total Protein 7.5 (6.4-8.2) gm/dl Albumin 4.0 (3.4-5.0) gm/dl Globulin 3.5 (2.5-4.0) gm/dl Albumin/Globulin Ratio 1.2 (0.9-2) Lipase 158 (73-393) U/L COVID-19 Eval Order Covid19 at [facility] SARS-CoV-2 (PCR) (Negative)
--- NOTE | 2021-03-31 10:10 | Electrocardiogram Report ---
Test Reason : Blood Pressure : / mmHG Vent. Rate : 062 BPM Atrial Rate : 062 BPM P-R Int : 142 ms QRS Dur : 082 ms QT Int : 422 ms P-R-T Axes : 055 046 047 degrees QTc Int : 428 ms Normal sinus rhythm Normal ECG When compared with ECG of 30-MAR-2021 11:59, (unconfirmed) Premature ventricular complexes are no longer Present Confirmed by Jose Ochoa ([id number]) on 03/31/2021 10:10:19 AM Referred By: REFERRED SELF Confirmed By:Jose Ochoa
--- NOTE | 2021-03-31 10:43 | Hospitalist Progress Note ---
Date of Service March 31, 2021 Assessment & Plan (1) Pancreatitis, acute: (2) Nausea: (3) Chest pain: Plan: This a 56-year-old female who has significant past medical history of depression with anxiety, history of alcohol use, history of methamphetamine abuse, CKD stage IIIa who presents ED secondary to epigastric abdominal pain x1.5 days. Acute pancreatitis Epigastric abd pain x 1.5 days with radiation to sternal chest wall and around LUQ to back Prior hx of pancreatitis x 2 in 2013, per pt second time required stenting, at [facility] No significant hx of ETOH or NSAID use Lipase, LFTs normal. CT abd/pelvis with liver, gallbladder, pancreas, spleen unremarkable NPO except sips/chips, IV LR @150cc/hr IV APAP Q8hr scheduled, PRN tramadol and Toradol for pain, IV morphine for breakthrough Miralax for moderate stool within colon seen on imaging Continue antiemetics Appreciate GI recs - plan for OP EUS in 4-6 weeks Chest pain Initial complaint of chest pain appears more epigastric, consistent with pancreatitis No cardiac symptoms, troponin negative x 3, EKG unremarkable Will d/c telemetry Depression Anxiety Continue effexor, buspar and trazodone PRN lorazepam and hydroxyzine CKD III bun/cr stable baseline cr 1.0-1.1 in epic Dispo: med tele PCP: James FULL CODE Patient was seen and examined in collaboration with Dr. Black, please see addendum. Admission and Anticipated Discharge Date Admission Date: March 30, 2021 Supervising Physician Co-Signing Physician Notes I have seen and examined the patient and have discussed the case with the provider above. I agree with the assessment and plan as stated. Baylee was still reporting significant epigastric pain with slight improvement in RUQ pain today, still with radiation to her back. She feels the fluids are helping her and she is not feeling hungry. Conservative management without further imaging at this time per GI with outpatient followup in 4-6 weeks for EUS recommended. Physical exam reveals soft, ND abdomen with persistent epigastric ans RUQ tenderness. She is hemodynamically stable, afebrile and oxygenating well on room air. Cont current management as above. Advance diet as tolerated. DO Emmy Black 56 yo F admitted with acute pancreatitis Seen and examined in 262 bed 2. Patient continues to have intermittent but severe epigastric pain overnight. Pain improves after administration of IV morphine but then returns. Worse with movement. Nauseous overnight, improved with Zofran. Drinking small sips of water. Denies any fever or chills. No chest pain, shortness of breath, vomiting, dysuria, diarrhea or constipation. Review of Systems Review of Systems: At least ten systems reviewed and negative except as noted in the HPI. Physical Exam Physical Exam: General Appearance: WD/WN, vitals as above, sitting up in bed, appears uncomfortable, conversing without issue Head: normocephalic, atraumatic Eyes: normal inspection, PERRL, conjunctivae normal, anicteric sclerae ENT: external ear and nose normal, oropharynx normal Neck: normal visual inspection, trachea midline, no thyromegaly Respiratory: normal respiratory effort, lungs clear to auscultation, no wheeze, rales, rhonchi. No accessory muscle use Cardiovascular: regular rate, rhythm, no murmur, normal peripheral pulses, no BLE edema. Vessels: no JVD Chest: normal inspection of chest Abdomen/GI: normal bowel sounds, soft, epigastric tenderness to palpation, no hepatosplenomegaly Extremities/Musculoskeletal: no cyanosis or clubbing, extremities motor strength 5/5 Neurologic: PERRL, EOMI, accommodation nl, no face palsy, no dysarthria, CN's II-XI intact bilaterally and moves all extremities Psychiatric: A+Ox3, euthymic affect Skin: no rashes, normal color, warm/dry Results & Data Results & Data ([facility]) Vital Signs (Past 12 Hours) Vital Signs Temp Pulse Pulse Resp BP Pulse Ox 03/31/21 08:08 36.4 C L 66 18 115/70 94 03/31/21 06:26 66 16 119/74 96 03/31/21 03:00 36.5 C 69 20 116/67 95 03/31/21 01:45 65 03/30/21 23:00 36.6 C 60 20 136/71 96 Laboratory Results Short CBC 03/30/21 03/31/21 Range/Units 12:15 08:25 WBC 4.39 L 3.36 L (4.8-10.8) K/uL Hgb 15.4 13.3 (12.0-16.0) g/dL Hct 44.7 39.9 (37-47) % Plt Count 172 148 (130-400) K/uL BMP 03/30/21 03/31/21 12:15 08:25 Sodium 140 138 Potassium 4.0 4.0 Chloride 107 106 Carbon Dioxide 25 29 BUN 18 20 H Creatinine 1.04 0.98 Glucose 103 H 99 Calcium 9.6 9.0 Cardiac Enzymes 03/30/21 03/30/21 03/31/21 Range/Units 12:15 18:31 00:29 Troponin I < 0.015 < 0.015 < 0.015 (0-0.045) ng/ml Liver Function 03/30/21 03/31/21 Range/Units 12:15 08:25 Total Bilirubin 0.5 0.4 (0.2-1) mg/dl AST 14 L 12 L (15-37) U/L ALT 23 19 (12-78) U/L Alkaline Phosphatase 95 77 (45-117) U/L Albumin 4.0 3.3 L (3.4-5.0) gm/dl Diagnostic Findings Abdomen/Pelvis CT 03/30/21 12:[address] WITH IV CONTRAST CT DOSE: 594.40 mGy.cm HISTORY: Epigastric pain. TECHNIQUE: Multiaxial CT images of the abdomen and pelvis were performed following the use of intravenous contrast. A dose lowering technique was utilized adhering to the principles of ALARA. COMPARISON STUDY: Abdomen and pelvis CT 03/12/2021. FINDINGS: There is a 4 mm nodule within the right lower lobe on image 28. There are mild dependent changes seen at the lung bases. No fractures within the visualized osseous structures. Suggestion of prior umbilical hernia repair. The liver, gallbladder, pancreas, spleen, adrenal glands, and kidneys are unremarkable. No hydronephrosis. No retroperitoneal lymphadenopathy. Normal caliber abdominal aorta. The bladder, uterus, and bilateral adnexa are within normal limits. No pelvic free fluid. No bowel wall thickening or obstruction. Moderate well-formed stool within the colon. Normal appendix. Old, healed right posterior rib fractures. IMPRESSION: 1. No bowel wall thickening or obstruction. 2. No hydronephrosis. 3. Moderate well-formed stool within the colon. 4. A 4 mm indeterminate pulmonary nodule within the right lower lobe. ACT 112: Negative or not required by law. Electronically signed by: David South M.D. 03/30/2021 3:36 PM Chest X-Ray 03/30/21 12:27 XR chest 1V portable INDICATION: MN ^abd pain . TECHNIQUE: Single frontal radiograph of the chest was obtained. Comparison: Comparison is made to chest one view 03/11/2021 FINDINGS: No lines and tubes are seen. The cardiomediastinal silhouette is normal. The lungs are clear. No evidence of pleural effusion or pneumothorax. IMPRESSION: No acute chest disease. ACT 112: Negative or not required by law. Electronically signed by: Antony Velázquez M.D. 03/30/2021 2:25 PM
[2021-03-31] MEDS ORDERED: POLYETHYLENE (MIRALAX) 17 GM PACK PO SCH (11:00)
[2021-03-31] MEDS ORDERED: POLYETHYLENE (MIRALAX) 17 GM PACK PO PRN (11:37)
[2021-03-31] MEDS ORDERED: traMADol HCL 50 MG TABLET PO PRN (11:38)
[2021-03-31] MEDS ORDERED: MoRPHine SULFATE 4 MG/ML 1 ML CARP\\VIAL IV PRN (12:52)
[2021-03-31] MEDS ORDERED: KETOROLAC TROMETHAMINE 15 MG/ML VIAL IV PRN (12:53)
[2021-03-31] MEDS ORDERED: MoRPHine SULFATE 2 MG/ML CARP IV PRN (13:00)
[2021-03-31] MEDS ORDERED: LORazepam 0.5 MG TAB PO STA (20:08)
[2021-03-31] MEDS: HYDROmorphone INJ 0.5 MG/0.5 ML SYR IV PRN (20:50)
[2021-03-31] MEDS: ENOXAPARIN INJ 40 MG/0.4 ML SYR SQ SCH (23:04)
[2021-04-01] MEDS: HYDROmorphone INJ 0.5 MG/0.5 ML SYR IV PRN ×3 (01:05→09:54)
[2021-04-01] MEDS: ONDANSETRON INJ 2 MG/ML 2 ML VIAL IV PRN ×2 (02:50→08:03)
[2021-04-01] MEDS: ACETAMINOPHEN 1,000 MG/100 ML VIAL IV SCH ×2 (02:57→09:54)
[2021-04-01] MEDS: LACTATED RINGER'S 1,000 ML IV SCH ×2 (05:04→08:03)
[2021-04-01 07:24] LABS: Hematocrit (blood only) 37.8 % (37-47); Hemoglobin 13.1 g/dL (12.0-16.0); Mean Corpuscular Hemoglobin 30.4 pg (25-34); Mean Corpuscular Hgb Conc 34.7 g/dL (32-36); Mean Corpuscular Volume 87.7 fL (80-100); Mean Platelet Volume 9.8 fL (7.4-10.4); Platelet Count 145 K/uL (130-400); RDW Coefficient of Variation 12.5 % (11.5-14.5); RDW Standard Deviation 40.5 fL (36.4-46.3); Red Blood Count 4.31 M/uL (4.2-5.4); White Blood Count 3.71 K/uL (4.8-10.8)
[2021-04-01 07:45] LABS: Albumin Level 3.4 gm/dl (3.4-5.0); BUN Creatinine Ratio 15.5 (10-20); Calcium 8.8 mg/dl (8.5-10.1); Creatinine Clr Calc Pharmacy 90.2 ml/min; Est GFR (African American) 82.3 ml/min; Potassium 3.9 mmol/L (3.5-5.1)
[2021-04-01 07:48] LABS: Albumin Globulin Ratio 1.2 (0.9-2); Bilirubin,Total 0.4 mg/dl (0.2-1); Globulin 2.9 gm/dl (2.5-4.0); Total Protein 6.3 gm/dl (6.4-8.2)
[2021-04-01] MEDS: VENLAFAXINE HCL XR 75 MG CAPXR PO SCH (07:57)
[2021-04-01] MEDS: VENLAFAXINE HCL XR 150 MG CAPXR PO SCH (07:57)
[2021-04-01] MEDS: busPIRone 15 MG TAB PO SCH (07:57)
[2021-04-01] MEDS: FAMOTIDINE 20 MG in SYRINGE 3 ML IV SCH (08:03)
--- NOTE | 2021-04-01 12:36 | Discharge Summary ---
Date of Service April 01, 2021 Admission HPI Per Admitting Provider This a 56-year-old female who has significant past medical history of depression with anxiety, history of alcohol use, history of methamphetamine abuse, CKD stage IIIa who presents ED secondary to epigastric abdominal pain x1.5 days. Her boyfriend is at bedside. She states pain started 2 evenings ago approximately 2 hours after eating pizza. Pain is located in epigastrium and radiates to sternal region as well as around the left lower quadrant into her back. She describes pain as stabbing, constant, does not wax or wane, made worse with inspiration, but nothing else improves pain. She has tried over-the- counter ibuprofen and prescribed Zofran without relief. She has had similar symptoms in the past when diagnosed with pancreatitis. At that time her lipase was mildly elevated in the 500s. She also admits to having pancreatitis back in approximately 2013x2. The second time required a stent placed in questionably the pancreatic duct. This was done in [place] and she has not followed up with gastroenterology in this area. She also elicits headache and nausea but no vomiting. She denies fever, chills, sweats, lightheadedness, dizziness, shortness breath, cough, URI symptoms, hemoptysis, emesis, hematemesis, diarrhea, melena or hematochezia. Over the past 24 hours she has stopped to mostly a liquid diet. She has been unable to eat. She is able to tolerating liquids. She denies any history of abdominal surgeries. Her last bowel movement was 2 days ago. In ED anemic stable CMP and CBC were unremarkable at her lipase was unremarkable. CT abdomen pelvis revealed no bowel wall thickening or obstruction, no hydronephrosis, a 4 mm indeterminate pulmonary nodule within the right lower lobe. Symptoms improving with IV narcotics. She denies significant NSAID Use. Last ETOH use was 2 weeks ago. She does not consume ETOH on a regular basis. She states back in 2013 they initially thought ETOH related until she required a pancreatic stent. Of significance pt was seen in ED on 03/13 with similar sx. At that time lipase mildly elevated 515. She was seen in f/u with PCP and repeat lipase on 03/21 was 148. Admission Exam Per Admitting Provider Constitutional: WD/WN, appears ill, In pain, vitals as above, NAD, sitting up in bed, pleasant, conversing easily Head: Normocephalic, Atraumatic Eyes: PERRL, conjunctivae normal, anicteric sclerae ENMT: external ear and nose normal, oropharynx normal Neck: trachea midline, no thyromegaly normal visual inspection Respiratory: normal respiratory effort, lungs clear to auscultation, no wheeze, rales, rhonchi. Normal insp/exp effort, no accessory muscle use Cardiovascular: RRR, no murmur, no edema Vessels: no JVD or carotid bruit Chest: normal inspection of chest Abdomen: + pain to palpation in epigastrum and LUQ, no rebound, guarding or rigidity, normal bowel sounds, soft, no hepatosplenomegaly Musculoskeletal: no cyanosis or clubbing, extremities motor strength 5/5 Skin: no rashes, warm and dry normal turgor Neurologic: PERRL, EOMI, accommodation nl, no face palsy, no dysarthria CN's II-XI intact bilaterally and moves all extremities Psychiatric: A+Ox3, euthymic affect Lymphatic: no cervical or axillary lymphadenopathy : deferred Principal Diagnosis Acute pancreatitis Discharge Exam General Appearance: WD/WN, vitals as above, sitting up in bed, NAD Head: normocephalic, atraumatic Eyes: normal inspection, PERRL, conjunctivae normal, anicteric sclerae ENT: external ear and nose normal, oropharynx normal Neck: normal visual inspection, trachea midline, no thyromegaly Respiratory: normal respiratory effort, lungs clear to auscultation, no wheeze, rales, rhonchi. No accessory muscle use Cardiovascular: regular rate, rhythm, no murmur, normal peripheral pulses, no BLE edema. Vessels: no JVD Chest: normal inspection of chest Abdomen/GI: normal bowel sounds, soft, epigastric tenderness to palpation, no hepatosplenomegaly Extremities/Musculoskeletal: no cyanosis or clubbing, extremities motor strength 5/5 Neurologic: no face palsy, no dysarthria, CN's II-XI intact bilaterally and moves all extremities Psychiatric: A+Ox3, euthymic affect Skin: no rashes, normal color, warm/dry Discharge Data Allergies Allergy/AdvReac Type Severity Reaction Status Date / Time oxycodone Allergy Unknown SWELLING Verified 03/30/21 13:59 Consultations 03/30/21 16:17 Consult Gastroenterology Routine Ordered Studies Laboratory Results WBC 3.71 K/uL (4.8-10.8) L 04/01/21 07:12 RBC 4.31 M/uL (4.2-5.4) 04/01/21 07:12 Hgb 13.1 g/dL (12.0-16.0) 04/01/21 07:12 Hct 37.8 % (37-47) 04/01/21 07:12 MCV 87.7 fL (80-100) 04/01/21 07:12 MCH 30.4 pg (25-34) 04/01/21 07:12 MCHC 34.7 g/dL (32-36) 04/01/21 07:12 RDW Std Deviation 40.5 fL (36.4-46.3) 04/01/21 07:12 RDW Coeff of Jesse 12.5 % (11.5-14.5) 04/01/21 07:12 Plt Count 145 K/uL (130-400) 04/01/21 07:12 MPV 9.8 fL (7.4-10.4) 04/01/21 07:12 Immature Gran % (Auto) 0.0 % 03/31/21 08:25 Neut % (Auto) 37.2 % 03/31/21 08:25 Lymph % (Auto) 49.4 % 03/31/21 08:25 [place] % (Auto) 9.2 % 03/31/21 08:25 Eos % (Auto) 3.9 % 03/31/21 08:25 Baso % (Auto) 0.3 % 03/31/21 08:25 Neut # (Auto) 1.25 K/uL (1.4-6.5) L 03/31/21 08:25 Lymph # (Auto) 1.66 K/uL (1.2-3.4) 03/31/21 08:25 [place] # (Auto) 0.31 K/uL (0.11-0.59) 03/31/21 08:25 Eos # (Auto) 0.13 K/uL (0-0.5) 03/31/21 08:25 Baso # (Auto) 0.01 K/uL (0-0.2) 03/31/21 08:25 Immature Gran # (Auto) 0.00 K/uL (0.00-0.02) 03/31/21 08:25 Sodium 139 mmol/L (136-145) 04/01/21 07:12 Potassium 3.9 mmol/L (3.5-5.1) 04/01/21 07:12 Chloride 107 mmol/L (98-107) 04/01/21 07:12 Carbon Dioxide 27 mmol/L (21-32) 04/01/21 07:12 Anion Gap 5.0 (3-11) 04/01/21 07:12 BUN 14 mg/dl (7-18) 04/01/21 07:12 Creatinine 0.90 mg/dl (0.6-1.2) 04/01/21 07:12 Est Cr Clr Drug Dosing 90.2 ml/min 04/01/21 07:12 Est GFR ( Amer) 82.3 ml/min 04/01/21 07:12 Est GFR (Non-Af Amer) 71.0 ml/min 04/01/21 07:12 BUN/Creatinine Ratio 15.5 (10-20) 04/01/21 07:12 Glucose 90 mg/dl (70-99) 04/01/21 07:12 POC Glucose 105 mg/dl (70-99) H 03/31/21 06:36 Calcium 8.8 mg/dl (8.5-10.1) 04/01/21 07:12 Total Bilirubin 0.4 mg/dl (0.2-1) 04/01/21 07:12 AST 14 U/L (15-37) L 04/01/21 07:12 ALT 17 U/L (12-78) 04/01/21 07:12 Alkaline Phosphatase 72 U/L (45-117) 04/01/21 07:12 Troponin I < 0.015 ng/ml (0-0.045) 03/31/21 00:29 Total Protein 6.3 gm/dl (6.4-8.2) L 04/01/21 07:12 Albumin 3.4 gm/dl (3.4-5.0) 04/01/21 07:12 Globulin 2.9 gm/dl (2.5-4.0) 04/01/21 07:12 Albumin/Globulin Ratio 1.2 (0.9-2) 04/01/21 07:12 Lipase 145 U/L (73-393) 03/31/21 08:25 COVID-19 Eval Order Covid19 at [facility] 03/30/21 12:52 SARS-CoV-2 (PCR) NEGATIVE (Negative) 03/30/21 12:52 Impressions Abdomen/Pelvis CT 03/30/21 12:[address] WITH IV CONTRAST CT DOSE: 594.40 mGy.cm HISTORY: Epigastric pain. TECHNIQUE: Multiaxial CT images of the abdomen and pelvis were performed following the use of intravenous contrast. A dose lowering technique was utilized adhering to the principles of ALARA. COMPARISON STUDY: Abdomen and pelvis CT 03/12/2021. FINDINGS: There is a 4 mm nodule within the right lower lobe on image 28. There are mild dependent changes seen at the lung bases. No fractures within the visualized osseous structures. Suggestion of prior umbilical hernia repair. The liver, gallbladder, pancreas, spleen, adrenal glands, and kidneys are unremarkable. No hydronephrosis. No retroperitoneal lymphadenopathy. Normal caliber abdominal aorta. The bladder, uterus, and bilateral adnexa are within normal limits. No pelvic free fluid. No bowel wall thickening or obstruction. Moderate well-formed stool within the colon. Normal appendix. Old, healed right posterior rib fractures. IMPRESSION: 1. No bowel wall thickening or obstruction. 2. No hydronephrosis. 3. Moderate well-formed stool within the colon. 4. A 4 mm indeterminate pulmonary nodule within the right lower lobe. ACT 112: Negative or not required by law. Electronically signed by: David South M.D. 03/30/2021 3:36 PM Chest X-Ray 03/30/21 12:27 XR chest 1V portable INDICATION: MN ^abd pain . TECHNIQUE: Single frontal radiograph of the chest was obtained. Comparison: Comparison is made to chest one view 03/11/2021 FINDINGS: No lines and tubes are seen. The cardiomediastinal silhouette is normal. The lungs are clear. No evidence of pleural effusion or pneumothorax. IMPRESSION: No acute chest disease. ACT 112: Negative or not required by law. Electronically signed by: Antony Velázquez M.D. 03/30/2021 2:25 PM Hospital Course (1) Pancreatitis, acute: The patient is a 56-year-old female presented to the emergency department with epigastric pain. She reports recently being seen in the emergency room 2 weeks prior for the same pain after attending the [facility]. She was admitted for acute pancreatitis and placed on bowel rest and IV fluids. Lipase was within normal range, however, she had significant epigastric and right upper quadrant tenderness. A CT of the abdomen pelvis with IV contrast was performed revealing no bowel wall thickening or obstruction, no hydronephrosis and moderate well-formed stool within the colon. An incidental 4 mm indeterminate pulmonary nodule was seen in the right lower lobe. She remained hemodynamically stable and afebrile and over a couple of days with pain control and IV fluids, her pain completely resolved prior to discharge. She has a history of structural abnormalities of the pancreas with a reported episode of pancreatitis in 2015 requiring an ERCP. Gastroenterology was consulted and recommended an outpatient endoscopic ultrasound in 4 to 6 weeks. She was able to tolerate of solid food lunch prior to leaving. She was discharged in stable condition with close primary care follow-up recommended Total Time Total Time Spent Total Time Spent (In Minutes): 45 Discharge Plan Discharge Items Patient Disposition: Home - Self-Care Reason For Visit: CHEST PAINS; ? PANCREATITS Discharge Diagnosis: Acute pancreatitis Condition on Discharge: Good Activity: Resume your previous activity Non-emergency contact: Primary Care Provider Call non-emergency contact if: you have any medication questions, your symptoms worsen, your pain is not controlled, your pain is worsening and you have a fever Follow-up/Referrals: Ellis Ramirez MD [Primary Care Provider] - (Date & Time 04/05/2021 11:00 AM Provider Ellis Ramirez III, MD Department [facility] ) Diet: Regular Addtl Attending Provider Instructions: It is recommended that you follow-up with your primary care doctor within 1 week of discharge home. This will be to ensure you have good follow-up with gastroenterology and that your pain has not returned. A follow-up in 4 to 6 weeks is recommended with [facility] gastroenterology for an endoscopic ultrasound. This is to further investigate the cause of your pancreatitis. Please contact their office to set this up. It was a pleasure taking care of you! Please call if you have any questions or problems. You can reach a [facility] hospitalist on duty at [facility] 24 hours a day by calling [phone]. Take care of yourself. Nallely Black DO [facility] Hospitalist Pending Studies at Discharge: No Stand-Alone Forms: My [facility] Medications and DC Order Prescriptions: Continued cyclobenzaprine 10 mg tablet 10 mg PO BID PRN (Reason: muscle spasms) RF: 0 venlafaxine 75 mg capsule,extended release 24hr 75 mg PO DAILY RF: 0 trazodone 50 mg tablet 25 mg PO DAILY RF: 0 venlafaxine 150 mg capsule,extended release 24hr 150 mg PO DAILY RF: 0 lorazepam 0.5 mg tablet 0.5 mg PO DAILY PRN (Reason: Anxiety) RF: 0 ibuprofen 200 mg Tablet 400 mg PO Q6H PRN (Reason: Pain) RF: 0 gabapentin 300 mg capsule 300 mg PO TID PRN (Reason: Pain) RF: 0 hydroxyzine HCl 25 mg tablet 25 mg PO TID PRN (Reason: Anxiety) RF: 0 buspirone 15 mg tablet 30 mg PO BID RF: 0 Discharge Orders: Discharge Order (Routine); Ordered 04/01/21 Ordered By: Nallely Black Admission Data Admit Date/Time: 03/31/21 11:39 Attending Provider: Nallely Black Admit Provider: Nallely Black Primary Care Provider: Ellis Ramirez Other Providers: Julio Ramirez ; Tomasa Lou
--- NOTE | 2021-04-02 20:05 | Electrocardiogram Report ---
Test Reason : Blood Pressure : / mmHG Vent. Rate : 070 BPM Atrial Rate : 070 BPM P-R Int : 144 ms QRS Dur : 084 ms QT Int : 412 ms P-R-T Axes : 000 137 126 degrees QTc Int : 444 ms Arm lead reversal Normal sinus rhythm Probably normal When compared with ECG of 31-MAR-2021 06:05, No significant change taking into account arm lead reversal Confirmed by Juan Chilel ([id number]) on 04/02/2021 8:05:07 PM Referred By: REFERRED SELF Confirmed By:Juan Chilel
== END 2021-04-01 13:13 | disposition home or self-care (01) | DRG 440 ==
LOC: 2W 11:48 → ED 11:48 → 2W 17:32